=== PATIENT | male | born 2000 | race Caucasian/White ===

== ENCOUNTER 2023-09-25 20:12 | Emergency (ER) | payer OTHER, SELFPAY ==
[2023-09-25 20:15] VITALS: BP 118/76
--- NOTE | 2023-09-25 20:42 | ED.MUSCINJ ---
HPI-Injury
General
Chief Complaint: Musculo-Skeletal Complaint
Source: patient
Exam Limitations: none
Time Seen by Provider: 09/25/23 20:35
Travel History
Have you had any contact with someone who has COVID-19?: No
Do you have any symptoms of coronavirus? Fever > 100 degrees, chills, cough, shortness of breath, sore throat, loss of taste or smell, muscle aches, or headache?: No
History of Present Illness-Injury
Is this injury a work related problem?: No
Is pt an associate of [facility]?: No
Initial Injury comments:
This is a 23 year old male that comes in with c/o left elbow pain. States that he was playing Ice Hockey and someone came up from behind him and he went down on both elbows. States that he was wearing his pads but his left elbow hurt more. States
that he has pain with bending. Denies any LOC. Denies any fever, chills, nausea, vomiting, diarrhea.
Past History
Past History
ED Past Medical History: IDDM
ED Past Surgical History: Orthopedic (Right hand surgery) and Urological (Testicular Torsion)
Social History
Tobacco: Non-smoker
Alcohol: None
Drug: None
Personal: Single
Living: with family
Review of Systems
Review of Systems
All Other Systems: ROS reviewed and negative except as documented in HPI and ROS
Constitutional: Reports no symptoms; Denies fever or chills
EENT: Reports no symptoms
Respiratory: Reports no symptoms; Denies cough or trouble breathing
Cardiac: Reports no symptoms
ABD/GI: Reports no symptoms; Denies abdominal pain, nausea, vomiting or diarrhea
: Reports no symptoms
Musculoskeletal: Reports joint pain (Left elbow)
Skin: Reports no symptoms
Neurological: Reports no symptoms; Denies dizzy or headache
Psychiatric: Reports no symptoms
Musculoskeletal Injury Exam
Musculoskeletal Injury Exam
Left Elbow:
Pain with Movement?: None
Tender to palpation?: None
Soft tissue swelling?: None
External deformity and angulation?: None
Joint effusion?: None
Contusion?: None
Hematoma-local bleeding into tissue?: None
Strain- Sprain- Tear (Connective tissue injury)?: None
Crepitus with movement?: No
Joint instability?: No
Malalignment/deformity?: No
Range of motion: Full
Distal skin color and temperature: normal-warm & good color
Capillary Refill: normal
Normal distal neurovascular exam?: Yes
Phy Exam
General Physical Exam
General Presentation: well appearing and no apparent distress
General age: appears stated age
General Skin: warm and dry
General Habitus: normal
General Mental: alert
General Hydration: appears well hydrated
Eye Exam
Eye Exam: EOMI
Musculoskeletal Exam
Musculoskeletal Exam: full ROM, no edema and other (Negative tenderness with palpation. Patient able to abduct. Flex wrist, move fingers and Bend elbow with only slight discomfort. )
Skin Exam
Skin Exam: normal color, warm/dry, no rash and no petechia
Psychiatric Exam
Psychiatric Exam: normal mood/affect
Injury Course
Orders/Labs/Results
Orders:
Orders
09/25/23 20:17
Elbow, 3 view, Left [CR Elbow - Left Min 3 Views ] Urgent
Comment:
Reason For Exam: FALL PLAYING HOCKEY
MDM/Problems Addressed
Differential Diagnosis Includes:
Contusion, Elbow Fracture
MDM/Problems Addressed:
This is a 23 year old male that comes in with c/o left elbow pain after falling when playing Ice Hockey.
Will get X-ray.
Explained to patient that the X-ray is normal. Offered patient a sling but he started the would not fowler the sling. Will medicate for pain. Patient to follow up with Orthopedics as needed.
Chronic conditions affecting care:
NA
Acute Exacerbation and/or Progression of Chronic Illness:
NA
*Radiology
Radiology exam reviewed: radiology read reviewed (left elbow= Normal)
*Pulse Oximetry
Patient hypoxic: no
*EKG
Interpreted by ED Provider?: NA
Rate: EKG- N/A
*Solution Engineer Interpretation
Rate: Solution Engineer- N/A
*Critical Care Note
Total Time (30-74mins, 75-104mins- exclusive of procedures): Not Applicable
ED Attending Note
-
Portions of this chart may have been created with voice recognition software.� Occasional wrong word or��sound alike� substitutions may have occurred due to the inherent limitations of voice recognition software.
Discharge Plan
Departure
Patient Disposition: Home (Routine Discharge)
Date of Disposition: 09/25/23
Time of Disposition: 20:49
Patient with high blood pressure during this ER visit?: No
Condition: Good
Covid-19: Not Applicable
Discharge Problem:
Contusion of elbow, left
Instructions: Contusion (DC)
Prescriptions:
No Action
insulin glargine [Lantus U-100 Insulin] 1,000 UNITS/10 ML solution
10 units SC HS
insulin lispro [Humalog U-100 Insulin] 100 UNIT/ML solution
5 - 10 unit SC AC
Patient Comments:
sliding scale
Activity Restrictions/Additional Instructions:
As discussed, your X-ray is negative for any fractures. This is most likely a contusion. Please ice and use Ibuprofen for pain. Follow up with the Orthopedis specialist as needed. IF YOU HAVE ANY OTHER CONCERNS PLEASE RETURN TO THE EMERGENCY ROOM.
Interventions
Interventions:
*Risk Screen - Suicide Last Done: 09/25/23 20:15
*Neglect/Abuse Screening Last Done: 09/25/23 20:15
[2023-09-25] MEDS: MOTRIN 600 MG PO (20:50)
== END 2023-09-25 20:58 | disposition home or self-care (01) ==
LOC: EMR 20:12
PROVIDERS: EMERGENCY PHYSICIAN Emergency Medicine; FAMILY PHYSICIAN Family Medicine
DX: S50.02XA Contusion of left elbow, initial encounter (principal); W19.XXXA Unspecified fall, initial encounter; Y93.22 Activity, ice hockey; E11.9 Type 2 diabetes mellitus without complications; Z79.4 Long term (current) use of insulin
CPT/HCPCS: 99283; 73080